=== PATIENT | male | born 1940 | race Caucasian/White ===

== ENCOUNTER → 2020-08-11 09:11 | Outpatient (BNVA) | payer OTHER, SELFPAY | PROVIDERS: PCP Internal Medicine; Visit Provider Surgery | DX: K44.0 Diaphragmatic hernia with obstruction, without gangrene (principal); K21.9 Gastro-esophageal reflux disease without esophagitis; K31.7 Polyp of stomach and duodenum; Z88.0 Allergy status to penicillin; Z88.8 Allergy status to other drugs, medicaments and biological substances; Z79.899 Other long term (current) drug therapy | CPT/HCPCS: 99214 ==

== ENCOUNTER 2020-08-24 17:15 | Outpatient (REF) | payer OTHER, SELFPAY ==
--- NOTE | 2020-08-24 17:19 | CT_ITS ---
EXAMINATION: CT CHEST WITHOUT CONTRAST CLINICAL INFORMATION: Diaphragmatic hernia with obstruction. COMPARISON: CT chest without contrast 05/28/2018 TECHNIQUE: Multidetector volumetric CT imaging of the chest was done. Axial MIP volume rendering provided. Sagittal and coronal reformatted images were obtained. This CT examination was performed using dose optimization techniques as appropriate, variously including the following: *Automated exposure control *Adjustment of mA and/or kV according to patient size (this includes techniques or standardized protocols for targeted exams where dose is matched to indication/reason for exam; i.e. extremities or head) *Use of iterative reconstruction technique DLP: 258 mGy-cm FINDINGS: REAL ESTATE DEVELOPMENT MANAGER: Unremarkable. LUNGS: There is a 5 mm nodule, right lung apex, image 57/5. There is a 1 mm noncalcified nodule, left upper lobe, axial image 93/5. There is a 3 mm nodule, right upper lobe subpleural based, image 131/5 There is a 2 mm nodule, right middle lobe, axial image 279/5. There is a 2 mm fissural-based nodule, right midlung, image 39/4. There is a 3 mm nodule, image 36/4, are likely fissural nodules, previously measured 4 mm and 5 mm. There are no new nodules seen. No acute pulmonary process seen. MEDIASTINUM: The thyroid lobes are symmetrical and normal. The central trachea and the bronchi are widely patent. Heart size and the great vessels are normal caliber. There is no pericardial effusion. There are coronary artery calcifications present. Central trachea and the bronchi are widely patent. There is a small 9 mm subcarinal nodule. A small hiatal hernia is noted. PLEURA: Focal pleural thickening along the right lateral chest wall and adjacent major fissure is stable. AXILLA: There are small shotty axillary lymph nodes seen bilaterally. UPPER ABDOMEN: Visualized liver, spleen, pancreas and bilateral adrenal glands are unremarkable. There are bilateral renal cysts. No radiopaque gallstones or wall thickening. OSSEOUS STRUCTURES: No lytic or sclerotic process. CT/CT chest wo con IMPRESSION: 1. Stable bilateral pulmonary nodules. No new nodules seen. Small to moderate-sized hiatal hernia, stable. 2. Focal right lateral pleural thickening extending adjacent to the major fissure is stable.
== END 2020-08-24 17:16 ==
LOC: HO.CT 17:15
PROVIDERS: Visit Provider Surgery
DX: K44.0 Diaphragmatic hernia with obstruction, without gangrene (principal); K21.9 Gastro-esophageal reflux disease without esophagitis; K31.7 Polyp of stomach and duodenum
CPT/HCPCS: 71250

== ENCOUNTER → 2020-09-08 09:30 | Outpatient (BNVA) | payer OTHER, SELFPAY | PROVIDERS: PCP Internal Medicine; Visit Provider Surgery | DX: K44.0 Diaphragmatic hernia with obstruction, without gangrene (principal); K21.9 Gastro-esophageal reflux disease without esophagitis | CPT/HCPCS: 99214 ==

== ENCOUNTER 2021-01-08 10:38 | Outpatient (REF) | payer OTHER, SELFPAY | END 2021-01-08 10:39 | disposition home or self-care (01) | LOC: HO.LAB 10:38 | PROVIDERS: PCP Internal Medicine; Visit Provider Internal Medicine Gastroenterology | DX: K52.9 Noninfective gastroenteritis and colitis, unspecified (principal); K31.7 Polyp of stomach and duodenum; Z01.82 Encounter for allergy testing | CPT/HCPCS: 36415; 86003; 99212 ==

== ENCOUNTER → 2021-01-30 11:04 | Outpatient (BNVA) | payer OTHER, SELFPAY | PROVIDERS: PCP Internal Medicine; Visit Provider Internal Medicine Gastroenterology | DX: Z13.89 Encounter for screening for other disorder (principal) ==

== ENCOUNTER → 2021-05-14 09:23 | Outpatient (BNVA) | payer OTHER, SELFPAY | PROVIDERS: PCP Internal Medicine; Visit Provider Internal Medicine Gastroenterology ==

== ENCOUNTER → 2022-05-13 10:19 | Outpatient (REF) | payer OTHER, SELFPAY ==
[2022-05-13 11:32] LABS: MANUAL DIFF FLAG NO
--- NOTE | 2022-05-13 11:32 | ECG_ITS ---
Test Reason : R55 Blood Pressure : / mmHG Vent. Rate : 044 BPM Atrial Rate : 044 BPM P-R Int : 182 ms QRS Dur : 144 ms QT Int : 474 ms P-R-T Axes : 078 -42 014 degrees QTc Int : 405 ms Marked sinus bradycardia Left axis deviation Right bundle branch block Abnormal ECG When compared with ECG of 20-JUN-2018 13:28, No significant changes seen Referred By: Estefania Ramirez Electronically Signed By:JEFFYR FLOOD
[2022-05-13 11:55] LABS: Basophils Percent Auto 0.6 % (0-2); Eosinophils Absolute Auto 0.2 X10*3/uL (0.0-0.4); Eosinophils Percent Auto 3.6 % (0-4); Hematocrit 38.2 % (42.0-52.0); Hemoglobin 12.1 g/dl (14.0-18.0); Imm Gran Abs Auto 0.01 X10*3/uL (0.00-0.03); Imm Gran Pct Auto 0.2 % (0.0-0.4); Lymphocytes Absolute Auto 1.6 X10*3/uL (1.2-4.9); Lymphocytes Percent Auto 31.2 % (20-40); Mean Corpuscular HGB Conc 31.7 g/dl (31.0-36.0); Mean Corpuscular Hemoglobin 28.1 pg (27.0-33.0); Mean Corpuscular Volume 88.8 fL (80.0-98.0); Mean Platelet Volume 8.6 fL (9.4-12.4); Monocytes Absolute Auto 0.5 X10*3/uL (0.1-1.2); Monocytes Percent Auto 10.1 % (2-11); Neutrophils Absolute Auto 2.9 x10*3/uL (2.0-8.3); Neutrophils Percent Auto 54.3 % (45-73); Platelet Count 270 X10*3/uL (160-400); Red Cell Distribution Width 13.5 % (11.0-16.0); White Blood Count 5.3 X10*3/uL (4.8-10.8)
[2022-05-13 12:30] LABS: Alanine Aminotransferase 14 U/L (0-40); Albumin Level 4.1 g/dL (3.5-5.0); Alkaline Phosphatase 85 U/L (39-117); Anion Gap 10 (12-20); Aspartate Amino Transferase 14 U/L (5-37); Bilirubin Total < 0.2 mg/dL (0.0-1.0); Blood Urea Nitrogen 19 mg/dL (9-16); Calcium 9.2 mg/dL (8.4-10.2); Carbon Dioxide 29 mmol/L (22-29); Chloride 104 mmol/L (96-108); Estimated Glomerular Filt Rate 56; Glucose Random 104 mg/dL (60-115); Potassium 4.6 mmol/L (3.3-5.1); Sodium 138 mmol/L (135-145); Total Protein 7.1 g/dL (6.5-8.0)
[2022-05-13 12:51] LABS: TSH reflex Free T4 1.68 uIU/mL (0.32-4.0)
[2022-05-13 13:06] LABS: Folate 6.2 ng/mL (> or = 4.0); Vitamin B12 200 pg/mL (200-900)
[2022-05-14 13:51] LABS: Transglutaminase Ab IgG <1.0 U/mL; Transglutaminase IgA <1.0 U/mL
== END ==
LOC: HO.CARD 10:19
PROVIDERS: PCP Internal Medicine; Visit Provider Internal Medicine Gastroenterology
DX: R10.33 Periumbilical pain (principal); K52.9 Noninfective gastroenteritis and colitis, unspecified; K75.81 Nonalcoholic steatohepatitis (NASH); K31.7 Polyp of stomach and duodenum; G89.29 Other chronic pain; R55 Syncope and collapse; R63.4 Abnormal weight loss
CPT/HCPCS: 36415; 80053; 82607; 82746; 84443; 85025; 86364; 93005; 99212

== ENCOUNTER 2022-05-22 13:27 | Outpatient (REF) | payer OTHER, SELFPAY ==
--- NOTE | ~2022-05-22 | CT_ITS ---
EXAMINATION: CT ABDOMEN AND PELVIS WITH CONTRAST CLINICAL INFORMATION: COMPARISON: None TECHNIQUE: Multidetector volumetric images were obtained from the superior aspect of the liver through the pubic symphysis following administration 85 mL of Omnipaque 350 intravenous contrast. Sagittal and coronal reformatted images were obtained on the technologist's workstation. Oral contrast: Yes This CT examination was performed using dose optimization techniques as appropriate, variously including the following: *Automated exposure control *Adjustment of mA and/or kV according to patient size (this includes techniques or standardized protocols for targeted exams where dose is matched to indication/reason for exam; i.e. extremities or head) *Use of iterative reconstruction technique DLP: 319 mGy-cm FINDINGS: LUNG BASES: The visualized lung bases are unremarkable. LIVER, GALLBLADDER, AND BILIARY TREE: The liver is normal in size, shape, and attenuation. There is a 5 mm low-attenuation lesion in the posterior segment of the right lobe liver axial image 28 series 3. This is too small to definitively characterize. The gallbladder is unremarkable with no evidence of radiopaque gallstones, gallbladder wall thickening, or obvious pericholecystic inflammatory changes. There is mild left-sided intrahepatic biliary duct dilatation. There is extrahepatic biliary duct dilatation. Common bile duct measures 11 mm. No common bile duct stone is appreciated by CT. PANCREAS: There is fatty infiltration of the head of the pancreas. There is question of mild dilatation of the main pancreatic duct in the head of the pancreas measuring 5 mm coronal reconstructed image 41 The pancreas is otherwise unremarkable. SPLEEN: Unremarkable. ADRENAL GLANDS: Unremarkable. KIDNEYS AND URETERS: There is a 8 mm lesion exophytic to the lower pole the left kidney. Hounsfield units following contrast measure 80 not compatible with a cyst axial image 42 series 3. There are multiple bilateral renal cysts. There is a 4 cm cyst in the upper pole of the left kidney with small focus of calcification. The remainder of the renal cysts represent simple cysts. BLADDER: Unremarkable. GASTROINTESTINAL TRACT: There is diverticulosis of the colon. The small and large bowel are otherwise unremarkable. The appendix is not seen. There is an esophageal hernia. This is decreased in size from 2018 exam. ABDOMINAL WALL: There is a small right inguinal hernia. LYMPH NODES: Normal. VASCULAR: There is evidence of atherosclerotic disease. No aneurysm. PELVIC VISCERA: Unremarkable. OSSEOUS STRUCTURES: There are degenerative changes of the spine. CT/CT abdomen pelvis w con IMPRESSION: Dilated left-sided intrahepatic and dilated common bile duct and question mild dilatation of the main pancreatic duct in the head of the pancreas. Follow-up MR of the pancreas with MRCP recommended. 8 mm lesion exophytic to the lower pole of the left kidney not compatible with a simple cyst. 5 mm low-attenuation lesion in the right lobe of the liver difficult to characterize due to small size. These could be evaluated at time of pancreas MRI as well. Bilateral renal cysts. Diverticulosis of the colon. Esophageal hernia decreased in size from 2018 exam.. Atherosclerotic disease. No significant abnormality. Fleischner guidelines were followed.
[2022-05-22] MEDS: iohexoL 350 MG/ML 100 ML INFUS..BTL IV (15:49)
[2022-05-22] MEDS: Barium Sulfate Oral (Vanilla) 450 ML ORAL.SUSP 900 ML PO (15:50)
== END 2022-05-22 13:28 | disposition home or self-care (01) ==
LOC: HO.CT 13:27
PROVIDERS: PCP Internal Medicine; Visit Provider Internal Medicine Gastroenterology
DX: K31.7 Polyp of stomach and duodenum (principal); K52.9 Noninfective gastroenteritis and colitis, unspecified; R63.4 Abnormal weight loss; R55 Syncope and collapse
CPT/HCPCS: 74177; Q9967

== ENCOUNTER 2022-06-07 09:30 | Outpatient (REF) | payer OTHER, SELFPAY ==
--- NOTE | ~2022-06-07 | MR_ITS ---
EXAMINATION: MR ABDOMEN WITHOUT AND WITH CONTRAST CLINICAL INFORMATION: Other specified disease of biliary tract. Right upper quadrant pain, discomfort and nausea. COMPARISON: Previous CT 05/22/2022 TECHNIQUE: MR abdomen was performed without and with use of 10 mL intravenous Gadavist gadolinium contrast. Postcontrast images are performed in multiphase dynamic sequences. Imaging was performed in 3 planes. MRCP sequences were performed. FINDINGS: LUNG BASES: The visualized lung bases are unremarkable. LIVER, GALLBLADDER, AND BILIARY TREE: There is signal loss in the liver on [id number] sequences suggestive of mild fatty infiltration. No focal liver lesion is seen. There is no intrahepatic biliary duct dilatation. The common bile duct is dilated measuring up to 1 cm. No common bile duct stone is seen. The gallbladder is normal in size. No gallstones are seen. The gallbladder wall is normal in thickness. There is no pericholecystic fluid. PANCREAS: There is mild dilatation of the main pancreatic duct in the head of the pancreas measuring 4 mm. The pancreas is otherwise normal. SPLEEN: Normal. ADRENAL GLANDS: Normal. KIDNEYS AND URETERS: There are multiple bilateral renal cysts. Largest right renal cyst measures 6.0 cm. Largest left renal cyst measures 5.0 cm. The questioned 1 cm lesion exophytic to the lower pole of the left kidney is not included in the [id number] on all sequences, particularly the post contrast sequences, and is not evaluated. GASTROINTESTINAL TRACT: Diverticulosis. Esophageal hernia. No bowel obstruction. No ascites or fluid collection. ABDOMINAL WALL: No significant hernia is appreciated. LYMPH NODES: No lymphadenopathy. VASCULAR: There is evidence of atherosclerotic disease. No aneurysm. OSSEOUS STRUCTURES: There is curvature of the lumbar spine to the right and degenerative change. MR/MR abdomen wo/w con IMPRESSION: 1. Dilated common bile duct down to the head of the pancreas. No mass or stone seen. Normal-appearing gallbladder. No gallstone seen. Mild dilatation of the main pancreatic duct in the head of the pancreas measuring 4 mm. The pancreas is otherwise normal. 2. Multiple bilateral renal cysts. Questioned 1.0 cm lesion exophytic to the lower pole the left kidney is not included in the [id number] on all sequences and not adequately assessed. Esophageal hernia. Diverticulosis.
== END 2022-06-07 09:31 | disposition home or self-care (01) ==
LOC: HO.MRI 09:30
PROVIDERS: Visit Provider Internal Medicine Gastroenterology
DX: K83.8 Other specified diseases of biliary tract (principal)
CPT/HCPCS: 74183; A9585

== ENCOUNTER → 2022-07-03 12:36 | Day surgery (SDC) | payer OTHER, SELFPAY ==
[2022-07-03] VITALS (7 sets, daily range): BP systolic 143–173; BP diastolic 63–86; PULSE 44–78; RESP 14–16; TEMP 36.2–36.7; O2SAT 97–98; BMI 22.2
--- NOTE | ~2022-07-03 | FL_ITS ---
EXAMINATION: XR FLUOROSCOPY WITH IMAGES CLINICAL INFORMATION: Biliary ductal dilatation. COMPARISON: CT abdomen and pelvis with contrast 05/22/2022, MR abdomen 06/07/2022. TECHNIQUE: Fluoroscopy performed by Dr. Estefania Ramirez. Fluoroscopy time: 20 seconds. Cumulative Dose: 5.44 mGy. Images: 5. FINDINGS: Fluoroscopic spot views show distal end of endoscopy tube with guidewire in region of the lower common duct. FL/FL guidance in OR IMPRESSION: Fluoroscopy for GI procedure.
--- NOTE | 2022-07-03 13:01 | MHC.SHP ---
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) History of Previous Operations: Relevant previous surgery/procedure and date(s) (hiatal henria repair) Allergies: Allergies Allergy/AdvReac Type Severity Reaction Status Date / Time wheat Allergy Mild dizziness, Verified 05/13/22 10:31 diarrhea aspartame [ASPARTAME] Allergy Unknown NAUSEA & Verified 05/13/22 10:31 VOMITING codeine [CODEINE] Allergy Unknown HIVES Verified 05/13/22 10:31 lactose [LACTOSE] Allergy Unknown DIARRHEA Verified 05/13/22 10:31 Penicillins [PENICILLINS] Allergy Unknown HIVES Verified 05/13/22 10:31 saccharin [SACCHARIN] Allergy Unknown NAUSEA & Verified 05/13/22 10:31 VOMITING simvastatin [SIMVASTATIN] Allergy Unknown UNKNOWN Verified 05/13/22 10:31 artificial sweeteners Allergy Unknown unknown Uncoded 05/13/22 10:31 penicillin Allergy Unknown unknown Uncoded 05/13/22 10:31 Saccharin Allergy Unknown Unknown Uncoded 05/13/22 10:31 ARTIFICIAL SWEETENERS AdvReac Unknown VOMITING Uncoded 05/13/22 10:31 Review of Systems Sugical H&P ROS: Negative: Constitution, Cardiovascular, Respiratory, Neurological, Psychiatric, Hem-Onc, Allergic/Immunologic, Gastrointestinal, Genitourinary, Musculoskeletal, Integumentary, Endocrine and Eyes/Ears/Nose/Throat Exam Surgical H&P Exam: Normal: HEENT, Normal: Heart, Normal: Lungs, Normal: Extremities, Normal: Skin and Normal: Neurological and Significant Findings: Abdomen (tender epigastrium) Plan Diagnosis/Plan: Unchanged I have reviewed the history and physical and performed a pertinent physical examination on my patient. No changes have occurred unless specified. ERCP as above to investigate abn imaging and weight loss, with EGD.
--- NOTE | 2022-07-03 13:05 | P.CONAN_ITS ---
HPI - Anesthesia Eval Consult details Narrative: 82 yo male patient for ERCP with spyglass PMFSH Active Problems Active Problems: All Active Problems (Updated 06/17/22 @ 16:53 by Estefania Ramirez MD) Renal cyst (Acute) Dilated cbd, acquired (Acute) Weight loss (Acute) Vasovagal episode (Acute)- patient does not remember Postprandial diarrhea (Acute) Gastric polyps (Acute) GERD (gastroesophageal reflux disease) (Acute). 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 Denies chest pain or SOB. Gets dizzy if stands up suddenly. 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 Family History Family history of problems with anesthesia: No Surgical History Surgical History (Updated 07/03/22 @ 13:14 by Nesha Lan MD) H/O colonoscopy History of esophagogastroduodenoscopy (EGD) History of repair of hiatal hernia History of Problems with Anesthesia: No Social History Social History Household Members: None Alcohol intake: current Alcohol intake frequency: holidays/special occasions only Advance Directives: No Advance Directives Information Provided: Yes Meds Allergies Allergy/AdvReac Type Severity Reaction Status Date / Time wheat Allergy Mild dizziness, Verified 05/13/22 10:31 diarrhea aspartame [ASPARTAME] Allergy Unknown NAUSEA & Verified 05/13/22 10:31 VOMITING codeine [CODEINE] Allergy Unknown HIVES Verified 05/13/22 10:31 lactose [LACTOSE] Allergy Unknown DIARRHEA Verified 05/13/22 10:31 Penicillins [PENICILLINS] Allergy Unknown HIVES Verified 05/13/22 10:31 saccharin [SACCHARIN] Allergy Unknown NAUSEA & Verified 05/13/22 10:31 VOMITING simvastatin [SIMVASTATIN] Allergy Unknown UNKNOWN Verified 05/13/22 10:31 artificial sweeteners Allergy Unknown unknown Uncoded 05/13/22 10:31 penicillin Allergy Unknown unknown Uncoded 05/13/22 10:31 Saccharin Allergy Unknown Unknown Uncoded 05/13/22 10:31 ARTIFICIAL SWEETENERS AdvReac Unknown VOMITING Uncoded 05/13/22 10:31 Home Medications Medication Instructions Recorded Confirmed Last Taken Type carisoprodol 350 mg tablet 350 mg PO QID 08/11/20 09/08/20 Unknown History gabapentin 300 mg capsule 300 mg PO BID 08/11/20 09/08/20 Unknown History oxycodone 5 mg tablet 5 mg PO Q4H PRN 08/11/20 09/08/20 Unknown History Exam Exam Date and Time: July 03, 2022 1305 Height,Weight and Vital Signs: Height 5 ft 10 in Weight 70.307 kg Vital Signs Temp Pulse Resp BP Pulse Ox O2 Del Method 07/03/22 13:05 98.1 F 44 L 16 167/63 H 97 Room Air Airway Mallampati Class: II TM Dist: >3cm Neck ROM: Full Denture: Upper Loose/Missing/Broken Teeth: Yes (No teeth bottom ) Heart: RRR Lungs: CTAB Assessment and Plan Assessment Anesthesia Assessment: Anesthesia Plan Discussed and Chart Reviewed Final Anesthetic Review Family History of Problems with Anesthesia: No History of Problems with Anesthesia: No NPO: Yes ASA Class: II Final Preanesthetic Review: No Changes in Pt Med Stat, Meds/Allgs Chart Reviewed, Consent Obtained/Reviewed and Anes Risks/Benef Reviewed Patient Risk: Low Procedure Risk: Intermediate Assessment/Block/Sedation in SS: Assess/Block/Sedation-SS Anesthetic Plan Anesthetic Plan: GA Disposition: Standard PACU
[2022-07-03] MEDS: Lactated Ringers 1,000 ML 100 ML IVCONT (13:37)
--- NOTE | 2022-07-03 15:14 | W.PM.OPN ---
Operative Note Operative Note Date of Service: 07/03/22 Narrative: Description: Endoscopic retrograde cholangiopancreatography (ERCP) and EGD PROCEDURE: Endoscopic retrograde cholangiopancreatography and EGD INDICATION FOR THE PROCEDURE: Patient with a history of chronic abdominal pain and imaging with dilated CBD and PD, concern for neoplasia MEDICATIONS: General anesthesia, rectal indomethacin 100 mg, cefotetan 1 g IV The risks of the procedure were made aware to the patient and consisted of medication reaction, bleeding, perforation, aspiration, and post ERCP pancreatitis. DESCRIPTION OF PROCEDURE: After informed consent and appropriate sedation, the duodenoscope was inserted into the oropharynx, down the esophagus, and into the stomach. The scope was then advanced through the pylorus to the ampulla. There was a lot of food debris in the stomach with erythema noted. No mass could be seen. There appeared to be extrinsic compression of the stomach. The ampulla had a markedly abnormal appearance. It was edematous and swollen with camron ampullary edema. No orifice could be identified, The tome was used with the wire to gently probe the ampulla but the wire could not be placed in either the CBD or PD. An upper endoscope was used to investigate further, it confirmed the findings above, no masses seen. Biopsies were taken from around the stomach and the periampullary area. The procedure was then terminated and the ERCP scope withdrawn. FINDINGS: 1. gastric outlet obstruction 2. possible invasive ampullary lesion or stenosed ampulla RECOMMENDATIONS: 1. small meals, low fat diet, low fiber 2. refer for EUS and ERCP to tertiary center. 3. meantime repeat MRI pancreas.
== END | disposition home or self-care (01) ==
PROVIDERS: PCP Internal Medicine; Visit Provider Internal Medicine Gastroenterology
PROC: (CPT 43260; principal; 2022-07-03 13:40)
DX: R93.3 Abnormal findings on diagnostic imaging of other parts of digestive tract (principal); Z85.038 Personal history of other malignant neoplasm of large intestine; R63.4 Abnormal weight loss; Z68.23 Body mass index [BMI] 23.0-23.9, adult; R55 Syncope and collapse; K83.1 Obstruction of bile duct; K31.7 Polyp of stomach and duodenum; K21.9 Gastro-esophageal reflux disease without esophagitis; R10.9 Unspecified abdominal pain; G89.29 Other chronic pain; K44.9 Diaphragmatic hernia without obstruction or gangrene; Z79.899 Other long term (current) drug therapy; Z88.0 Allergy status to penicillin; Z88.8 Allergy status to other drugs, medicaments and biological substances; Z87.891 Personal history of nicotine dependence; Z98.890 Other specified postprocedural states; K75.81 Nonalcoholic steatohepatitis (NASH)
CPT/HCPCS: 43260; 43239; 88305; 88342; C1769; J0690; J1610; J2370; J2405; J3010; Q9967; Q9968

== ENCOUNTER 2022-07-12 10:19 | Outpatient (REF) | payer OTHER, SELFPAY ==
--- NOTE | ~2022-07-12 | US_ITS ---
EXAMINATION: US RETROPERITONEAL LIMITED (RENAL ONLY) CLINICAL INFORMATION: Renal cysts. COMPARISON: Previous MRI [address] of the abdomen and pelvis May 2022 TECHNIQUE: Grayscale and color imaging of the kidneys. Comparison with CT and MRI is difficult. FINDINGS: RIGHT KIDNEY: 11.7 x 5.6 x 4.6 cm (SAG x AP x TRV). The kidney is normal in size, contour, and echogenicity. Renal cortical thickness is normal. There are multiple renal cysts. There is a 3.4 x 3 x 3 cm complex cyst in the lower pole with layering hypoechoic dependent material. The remainder of the cysts represent simple cysts. Largest simple cyst measures 6.4 x 5.2 x 4.8 cm. No calculi or mass. No hydronephrosis. LEFT KIDNEY: 10.8 x 5.3 x 4.9 cm (SAG x AP x TRV). The kidney is normal in size, contour, and echogenicity. Renal cortical thickness is normal. There are multiple cysts. The largest cyst measures 4 x 3.5 x 3.6 cm in the upper pole and has a small focus of wall calcification. The remainder of the left renal cysts represent simple cysts. No calculi or mass. No hydronephrosis. US/US renal BI IMPRESSION: Multiple bilateral renal cysts. There is one complex cyst seen in each kidney. The remainder of the cysts represent simple cysts.
== END 2022-07-12 10:20 | disposition home or self-care (01) ==
LOC: HO.US 10:19
PROVIDERS: Visit Provider Internal Medicine Gastroenterology
DX: N28.1 Cyst of kidney, acquired (principal)
CPT/HCPCS: 76775

== ENCOUNTER 2023-04-29 10:32 | Outpatient (REF) | payer OTHER, SELFPAY ==
--- NOTE | ~2023-04-29 | CT_ITS ---
EXAMINATION: CT CHEST WITHOUT CONTRAST CLINICAL INFORMATION: Diaphragmatic hernia with obstruction and without gangrene COMPARISON: Previous chest CT August 2020 TECHNIQUE: Multidetector volumetric CT imaging of the chest was done. Axial MIP volume rendering provided. Sagittal and coronal reformatted images were obtained. This CT examination was performed using dose optimization techniques as appropriate, variously including the following: *Automated exposure control *Adjustment of mA and/or kV according to patient size (this includes techniques or standardized protocols for targeted exams where dose is matched to indication/reason for exam; i.e. extremities or head) *Use of iterative reconstruction technique DLP: 172 mGy-cm FINDINGS: LUNGS: Emphysema. Stable small pulmonary nodules. Areas of mild bronchial wall thickening and increased peribronchial attenuation greatest in the right upper and right lower lobes suggestive of mild airways disease. No endobronchial or endotracheal lesion. MEDIASTINUM: The mid thoracic esophagus is slightly distended and filled with fluid. There is a hiatal hernia. This appears slightly increased in size from previous exam. Normal heart size. No enlarged hilar or mediastinal lymph nodes. Calcified but normal caliber thoracic aorta. CORONARY ARTERY CALCIFICATION: Mild PLEURA: Focal right pleural thickening along the major fissure unchanged. No pleural effusion. AXILLA: No lymphadenopathy. UPPER ABDOMEN: Bilateral renal cysts. No imaging follow-up recommended. OSSEOUS STRUCTURES: Degenerative changes of the spine. CT/CT chest wo IV con IMPRESSION: Hiatal hernia increased from 2019 exam. Emphysema. Stable small pulmonary nodules. Probable mild airways disease greatest in the right upper and right lower lobes. Fleischner guidelines were followed.
== END 2023-04-29 10:33 | disposition home or self-care (01) ==
LOC: HO.CT 10:32
PROVIDERS: PCP Internal Medicine; Visit Provider Surgery
DX: K44.0 Diaphragmatic hernia with obstruction, without gangrene (principal)
CPT/HCPCS: 71250

== ENCOUNTER 2023-05-16 09:40 | Outpatient (REF) | payer OTHER, SELFPAY ==
--- NOTE | ~2023-05-16 | FL_ITS ---
PROCEDURE: FL BARIUM SWALLOW CLINICAL INFORMATION: Diaphragmatic hernia with obstruction without gangrene. COMPARISON: CT scan of 04/29/2023. TECHNIQUE: Barium swallow examination is performed using fluoroscopic evaluation in addition to multiple fluoroscopic spot views. The patient is imaged both upright and prone and using both thick and thin sulfate along with effervescent granules. Fluoroscopy time: 1.4 minutes DAP: 2.212 Gy-cm2 Images: 26 FINDINGS: There is normal apposition of the vocal cords when saying E. There is normal elevation of the soft palate while saying candy. Patient swallowed thin and thick barium and half-inch diameter barium tablet without difficulty. No nasopharyngeal reflux or tracheal aspiration. No significant cricopharyngeal hypertrophy or Zenker's diverticulum identified. There is noted to be a moderate-sized hiatal hernia present with free reflux of contrast to the level of the thoracic inlet spontaneously. No esophageal ulceration or persistent stricture is identified. FL/FL barium swallow IMPRESSION: Moderate-sized hiatal hernia with free gastroesophageal reflux to the level of the thoracic inlet.
== END 2023-05-16 09:41 | disposition home or self-care (01) ==
LOC: HO.XRAY 09:40
PROVIDERS: PCP Internal Medicine; Visit Provider Surgery
DX: K44.0 Diaphragmatic hernia with obstruction, without gangrene (principal)
CPT/HCPCS: 74220

== ENCOUNTER → 2023-05-16 09:42 | Outpatient (BNV) | payer OTHER, SELFPAY | PROVIDERS: PCP Internal Medicine; Visit Provider Radiology Diagnostic Radiology | DX: K44.0 Diaphragmatic hernia with obstruction, without gangrene (principal) | CPT/HCPCS: 74221 ==

== ENCOUNTER 2023-06-27 10:56 | Outpatient (AMB) | payer OTHER, SELFPAY ==
--- NOTE | 2023-06-27 10:58 | MHC.OFFVIS ---
Intake Vital Signs 06/27/23 11:09 Weight 158 lb 11.725 oz BP 120/70 Blood Pressure Location Lt brachial Pulse 75 Pulse Oximetry (%) 96 Intake Visit Reasons: Hiatal Hernia Allergies wheat Allergy (Mild, Verified 06/27/23 11:12) dizziness, diarrhea aspartame [ASPARTAME] Allergy (Unknown, Verified 06/27/23 11:12) NAUSEA & VOMITING codeine [CODEINE] Allergy (Unknown, Verified 06/27/23 11:12) HIVES lactose [LACTOSE] Allergy (Unknown, Verified 06/27/23 11:12) DIARRHEA Penicillins [PENICILLINS] Allergy (Unknown, Verified 06/27/23 11:12) HIVES saccharin [SACCHARIN] Allergy (Unknown, Verified 06/27/23 11:12) NAUSEA & VOMITING simvastatin [SIMVASTATIN] Allergy (Unknown, Verified 06/27/23 11:12) UNKNOWN ARTIFICIAL SWEETENERS Adverse Reaction (Unknown, Uncoded 08/23/22 15:32) VOMITING Medication List - Last Reconciled 06/27/23 by Gaurang Logan MD carisoprodol 350 mg PO QID colesevelam (WelChol) 1,250 mg (2 x 625 mg) PO BID gabapentin 300 mg PO BID mecobalamin (vitamin B12) (B12 Active) 1,000 mcg PO DAILY pantoprazole 40 mg PO BID 30 days sucralfate 10 mL PO BID HPI Hiatal Hernia HPI Details 83-year-old male who has done quite well since his paraesophageal hernia repair for a giant paraesophageal hernia with obstruction and or 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 He does not seem to have any symptoms that are related to IU potential recurrence although difficult to say on endoscopy with the stomach for blown up with air as to have significance this was. I had a long discussion with him about his eating habits and recommended some dietary modifications. He reports today that he does have occasional episodes of epigastric pain most recently a few weeks ago while mowing his lawn. This was not associated with anything he ate be did feel a bulge at his epigastrium at that time. He denies any dysphagia but does report significant reflux. He denies any hematemesis or blood in his stool. He did have a barium study on 05/16/2023 which showed moderate sliding hernia with reflux up to the inlet. On 04/29/[address] scan of the chest which shows again a recurrence which is slightly more than it was few years ago when I reviewed this with him and when he had no symptoms. Other than above, 12 point review of systems was done and negative. 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 Neck: No thyromegaly, supple, no JVD Lymph: No cervical, supraclavicular, or other lymphadenopathy Chest: No chest wall abnormalities or deformities Heart: Regular rate and rhythm Lungs: Clear to auscultation bilaterally Abdomen: Soft, nontender, normal bowel sounds wounds well healed no hernias appreciated Extremities: No edema, cyanosis, or clubbing. 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 I explained all this to him in detail. More specifically the episodes were he has epigastric pain are likely related. Again we did go over some dietary changes and I explained the option of a redo hernia repair which I think at this point given his relatively new symptoms he wants to proceed with. I discussed risks benefits and alternatives of this operation which he understood and agreed to proceed. Plan then will be for a Davinci paraesophageal hernia repair redo in about a month's time and he will need a risk assessment note from his [facility]. all questions were answered he was given some information and we went over this information together. 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
[2023-06-27 11:09] VITALS: BP 120/70; PULSE 75; O2SAT 96
== END 2023-06-27 11:23 | disposition home or self-care (01) ==
PROVIDERS: PCP Internal Medicine; Visit Provider Surgery
DX: K44.0 Diaphragmatic hernia with obstruction, without gangrene (principal)

== ENCOUNTER → 2023-06-27 10:56 | Outpatient (BNVA) | payer OTHER, SELFPAY | PROVIDERS: PCP Internal Medicine; Visit Provider Surgery | DX: K44.0 Diaphragmatic hernia with obstruction, without gangrene (principal) | CPT/HCPCS: 99212 ==

== ENCOUNTER 2025-07-21 09:08 | Outpatient (REF) | payer OTHER, SELFPAY ==
--- NOTE | ~2025-07-21 | MR_ITS ---
EXAMINATION: MR ABDOMEN WITHOUT AND WITH CONTRAST CLINICAL INFORMATION: Kidney cysts. COMPARISON: June 07, 2022. Correlated to CT dated May 22, 2022. TECHNIQUE: MR abdomen was performed without and with use of 7.3 mL intravenous Gadavist gadolinium contrast. Postcontrast images are performed in multiphase dynamic sequences. Imaging was performed in 3 planes. No reported immediate complications. FINDINGS: LUNG BASES: No enhancing mass. LIVER, GALLBLADDER, AND BILIARY TREE: Liver measures 14 cm. There are few scattered less than 5 mm nonenhancing fluid signal characteristic lesions, the most conspicuous in the inferior right hepatic lobe. The flow-void signal within the main portal veins and hepatic veins and intrahepatic portion of the IVC is normal. Mild prominent intrahepatic biliary ductal system. Gallbladder is fluid-filled nondistended. No pericholecystic fluid collection or gallbladder wall thickening. No intraluminal signal abnormality. Common bile duct measures 11 mm. No intraluminal signal abnormality. PANCREAS: No focal mass. No main pancreatic ductal dilatation. No peripancreatic fluid collections. SPLEEN: 10 cm. No focal mass. ADRENAL GLANDS: No nodular lesions. Soft tissue fullness, left adrenal gland. KIDNEYS AND URETERS: Right kidney: No hydronephrosis. Multifocal, different sizes, well-defined, nonenhancing, thin capsulated fluid signal characteristic lesions in an exophytic, cortical medullary junction renal cortex. The largest in the lower pole measures 6 cm. There is a 2.8 cm hypointense T2 1 mm maximum thickness nonenhancing capsule. There is a 1 cm thin septated fluid signal characteristic lesion in the posterior midportion. Normal enhancement pattern of the renal parenchyma. Normal enhancement pattern of the main vessels. No peripancreatic fluid collections or edema pattern. Left kidney: No hydronephrosis. 0.8 cm intrinsic hyperintense T1 exophytic nonenhancing lesion in the anterior midportion. There is a 1.2 cm exophytic intrinsic hyperintense T1 nonenhancing lesion in the lower pole. Multifocal, different sizes, well-defined, thin capsulated nonenhancing fluid signal characteristic lesions, the largest measures 2 cm Normal enhancement pattern of the renal parenchyma. Normal enhancement pattern of the main vessels. No perinephric fluid collections.. GASTROINTESTINAL TRACT: Hiatal hernia, moderate to large volume. Abundant food contents in the stomach. Abundant stool in a nondilated large intestine. No ascites. No intestinal obstruction pattern. ABDOMINAL WALL: No umbilical hernia. LYMPH NODES: No mesenteric or retroperitoneal lymphadenopathy. VASCULAR: No aneurysm or dissection, abdominal aorta. OSSEOUS STRUCTURES: A S-shaped curvature of the thoracolumbar spine with a dextroconvex rotoscoliosis apex at L2-3. Degenerative changes at the endplates of L2-3 and extending into the vertebral bodies mostly on the left side likely secondary to scoliosis. Ligamentum flavum hypertrophy. Broad-based disc bulging, T9-10 and T10 . MR/MR abdomen wo/w con IMPRESSION: Nonenhancing hemorrhagic cyst, left kidney. Bosniak type II renal cyst, bilaterally. Hiatal hernia, moderate to large volume. Subcentimeter hepatic cysts. Scoliosis and multilevel thoracolumbar spondylosis. Electronically signed by: Wilfredo Dunbar MD 07/21/2025 10:39 AM EDT
--- OUTSIDE RECORDS SUMMARY | 2025-07-21 09:55 | XMS_ITS | Clinical Summary ---
Author Organization [facility] Facility Address [address] [address] Care Team Providers Care Automobile Inspector Name Role Phone Edouard Landaverde MD Primary Care Provider [phone] Social History Tobacco Use Types Packs/Day Years Used Date Smoking Tobacco: Never Assessed Sex and Gender Information Value Date Recorded Sex Assigned at Not on file Legal Sex Male 2:18 PM EDT Gender Identity Not on file Sexual Orientation Not on file Plan of Treatment Health Maintenance Due Date Last Done Comments Pneumococcal Vaccine: 50+ Ye ars (1 of 2 - PCV) 1961 Influenza Vaccine (#1) 2025 Hepatitis B Vaccine Aged Out No longe r eligible based on patient's age to complete this topic Insurance [facility] Regions 1,2,3 (VACCN) Care Teams Automobile Inspector Relationship Specialty Start Date End Date Edouard Landaverde MD [address] [place] [address] PCP - General Internal Medicine 01/28/24
--- OUTSIDE RECORDS SUMMARY | 2025-07-21 09:55 | XMS_ITS | Encounter Summary ---
Author Organization [facility] Address [address] [facility] [address] [place] [address] Phone Care Team Providers Care Microsoft Dynamics Ax Consultant Name Role Phone Edouard Landaverde MD Primary Care Provider + Encounter Details Date Type Department Care Team (Late st Contact Info) Description 03/03/2024 Procedure Pass Non-Invasive Cardiology [address] [place] [address] Social History Tobacco Use Types Packs/Day Years Used Date Smoking Tobacco: Former Cigarettes Q uit: 1994 Smokeless Tobacco: Never Alcohol Use Standard Drinks/Week Comments Yes 0 (1 standard drink = 0.6 oz pur e alcohol) rare social Education Answer Date Recorded Are you interested in more education? Not on remi e 02/14/2023 Are you concerned about learning? Not on file 02/14/2023 No 02/14/2023 No 02/14/2023 Digital Access Answer Date Recorded No 03/18/2023 No 03/18/2023 Reliable internet access at home? Not on file 03/18/2023 Device with a working camera? Not on file Intimate Partner Violence Answer Date R ecorded Are you denied basic needs s uch as food, clothing, or medical care? No 01/16/2024 In the past 12 months have y ou been in a relationship with a person who hurts, threatens, or tries to control you? No 01/16/2024 Are you denied basic needs s uch as food, clothing, or medical care? No 01/16/2024 In the past 12 months have y ou been in a relationship with a person who hurts, threatens, or tries to control you? No 01/16/2024 Sex and Gender Information Value Date Recorded Sex Assigned at Male 09/26/2018 3:54 PM EST Legal Sex Male 3:44 PM EST Gender Identity Male 09/26/2018 3:54 PM EST Sexual Orientation Not on file documented as of this encounter Plan of Treatment Upcoming Encounters Date Type Department Care Team (Late st Contact Info) Description 12/27/2025 10:00 AM EDT Office Visit [facility] [address] [facility] 3rd Floor, [address] [place] [address] Kellie Johnson, [address] [address] [email or web address] documented as of this encounter Visit Diagnoses Not on filedocumented in this encounter Care Teams Microsoft Dynamics Ax Consultant Relationship Specialty Start Date End Date Edouard Landaverde MD [address] [place] [id number] PCP - General Internal Medicine 01/16/24 documented as of this encounter Additional Source Comments The information contained in this document represents components of the legal health record. It is not the complete legal health record.[facility]
--- OUTSIDE RECORDS SUMMARY | 2025-07-21 09:55 | XMS_ITS | Encounter Summary ---
Author Organization [facility] Address [address] [place] [address] Phone Care Team Providers Care First Aid Trainer Name Role Phone Edouard Landaverde MD Primary Care Provider + Encounter Details Date Type Department Care Team (Late st Contact Info) Description 01/20/2024 Procedure [facility] [address] [facility] 3rd Floor, [address] [place] [address] Social History Tobacco Use Types Packs/Day Years [...] Description 12/27/2025 10:00 AM EDT Office Visit [facility] [address] [facility] 3rd Floor, [address] [place] [address] Kellie Johnson, [facility] [address] [place] [address] [email or web address] documented as of this encounter Visit Diagnoses Not on filedocumented in this encounter Care Teams First Aid Trainer Relationship Specialty Start Date End Date Edouard Landaverde MD [address] [place] [id number] PCP - General Internal Medicine 01/16/24 documented as of this encounter Additional Source Comments The information contained in this document represents components of the legal health record. It is not the complete legal health record.[facility]
--- OUTSIDE RECORDS SUMMARY | 2025-07-21 09:56 | XMS_ITS | Clinical Summary ---
Author Organization [facility] Address [address] [place] [address] Phone Care Team Providers Care Hearing Screener Name Role Phone Edouard Landaverde MD Primary Care Provider [phone] Allergies Active Allergy Reactions Criticality Noted Date Comments Aspartame 06/11/2021 Codeine 06/11/2021 Other Reaction(s): severe nausea Egg Diarrhea 08/20/2023 Gluten Protein 01/18/2024 intolerance Lactose Diarrhea 08/20/2023 Other 06/11/2021 Artificial sweeteners Penicillins 06/11/2021 Saccharin 06/11/2021 Sildenafil 06/11/2021 Simvastatin 06/11/2021 Other Reaction(s): back aches Medications oxyCODONE (OXY-IR) 5 mg immediate release capsule Take 1 capsule (5 mg total) by mouth every 4 (four) hours. Active oxyCODONE (ROXICODONE) 15 mg immediate release tablet Take 1 tablet (15 mg total) by mouth every 4 (four) hours. Active carisoprodoL (SOMA) 350 mg tablet Take 1 tablet (350 mg total) by mouth 4 (four) times a day. Active colesevelam (WELCHOL) 625 mg tablet Take 2 tablets (1,250 mg total) by mouth 2 (two) times a day with meals. Active gabapentin (NEURONTIN) 300 mg capsule Take 1 capsule (300 mg total) by mouth 2 (two) times a day. 3 Active CYANOCOBALAMIN, VITAMIN B-12, ORAL Take 1,000 mcg by mouth 1 (one) time each day. Active pantoprazole (PROTONIX) 40 mg EC tablet Take 1 tablet (40 mg total) by mouth 2 (two) times a day. Active vardenafiL (LEVITRA) 20 mg tablet Take 1 tablet (20 mg total) by mouth. Active ondansetron ODT (ZOFRAN-ODT) 4 mg disintegrating tablet Take 1 tablet (4 mg total) by mouth. 3 Active Active Problems Problem Noted Date Diagnosed Date Paraesophageal hernia 09/01/2023 Overview (08/02/2024): Last Assessment & Plan: 84-year-old man who had a redo paraesophageal hernia repair on 08/20/2023 that has recurred with a small to moderate paraesophageal hernia now. He does have symptoms of reflux and occasional dysphagia depending on what he eats but thinks he can manage it by keeping his meals small, cutting up his food really well, and avoiding big chunks of bread or meat. I also discussed with him avoiding carbonated beverages and straws as that will fill the stomach with air and potentially make this worse. We also again talked about stopping his routine of morning push-ups and sit ups as this is likely the reason he has recurred twice now. The other option would be to repair this again and I discussed this with him in detail which she seemed understand. Ultimately he wants to try and do the dietary changes and see if he can keep this manageable and will alter his lifestyle choices accordingly as well. Assessment & Plan (09/07/2024 1:32 PM EST): 84-year-old man who had a redo paraesophageal hernia repair on 08/20/2023 that has recurred with a small to moderate paraesophageal hernia now. He does have symptoms of reflux and occasional dysphagia depending on what he eats but thinks he can manage it by keeping his meals small, cutting up his food really well, and avoiding big chunks of bread or meat. I also discussed with him avoiding carbonated beverages and straws as that will fill the stomach with air and potentially make this worse. We also again talked about stopping his routine of morning push-ups and sit ups as this is likely the reason he has recurred twice now. The other option would be to repair this again and I discussed this with him in detail which she seemed understand. Ultimately he wants to continue and do the dietary changes and see if he can keep this manageable and will alter his lifestyle choices accordingly as well. I will plan to see him in 6 months no new imaging necessary. All questions were answered. GERD (gastroesophageal reflux disease) Chronic back pain 06/11/2021 Diverticulosis 06/11/2021 Overview (08/02/2024): CN 02/04/07 Surgical History Surgery Date Site/Laterality Comments OTHER SURGICAL HISTORY 06/2018 PROCEDURE: HISTORY OTHER; COMMENT: paraesophageal hernia repair COLONOSCOPY 02/04/2007 PROCEDURE: HISTORICAL COLONOSCOPY; COMMENT: diverticulosis, polyps OTHER SURGICAL HISTORY 08/20/2023 N/A PROCEDURE: NC LAPS RPR PARAESPHGL HRNA INCL FUNDPLSTY W/MESH Medical History Medical History Date Comments History of colonic polyps 06/11/2021 DX:His tory of colonic polyps; COMMENT: CN 02/04/07 Chronic back pain 06/11/2021 DX:Chronic serjio k pain Diverticulosis 06/11/2021 DX:Diverticulosi s; COMMENT: CN 02/04/07 GERD (gastroesophageal reflux disease) 06/11/2021 DX:GERD (gastroesophageal reflux disease) Social History Tobacco Use Types Packs/Day Years Used Date Smoking Tobacco: Former Cigarettes Q uit: 10/20/1994 Sex and Gender Information Value Date Recorded Sex Assigned at Not on file Legal Sex Male 7:44 AM EST Gender Identity Not on file Sexual Orientation Not on file Obstetrics History Last Filed Vital Signs Vital Sign Reading Time Taken Comments Blood Pressure 152/66 03/07/2025 8:47 AM EDT Pulse 60 03/07/2025 8:47 AM EDT Temperature 36.9 C (98.4 F) 03/07/2025 8:47 AM EDT Respiratory Rate 14 09/06/2024 10:21 AM EST Oxygen Saturation 100% 03/07/2025 8:47 AM EDT Inhaled Oxygen Concentration - - Weight 73.7 kg (162 lb 6.4 oz) 03/07/2025 8:47 A M EDT Height 174 cm (5' 8.5 ) 03/07/2025 8:47 AM EDT Body Mass Index 24.33 03/07/2025 8:47 AM EDT Plan of Treatment Upcoming Encounters Date Type Department Care Team (Late st Contact Info) Description 08/01/2025 9:00 AM EDT Office Visit [facility] [place] [address] [place] [address] Gaurang Logan MD [address] [place] [address] Health Maintenance Due Date Last Done Comments Colorectal Cancer Screening: Colonoscopy 02/05/2012 02/04/2007 Pneumococcal Vaccine: 50+ Years (2 of 2 - PCV20 or PCV21) 03/10/2016 03/10/2015, 01/04/2010, 09/08/1998 RSV Immunization Adult Patients (1 - 1-dose 75+ series) 2017 Cholesterol Screening (Lipid Panel) 09/22/2022 Falls Risk Assessment 09/22/2022 Social Influencers of Health Screening 09/22/2022 Depression Screening 10/20/2024 COVID-19 Vaccine (3 - season) 2025 06/01/2021, 11/28/2020 Influenza Vaccine (#1) 2025 0, 07/23/2019, 08/18/2018, Additional history exists DTaP,Tdap,and Td Vaccines (3 - Td or Tdap) 07/21/2027 07/21/2017, 11/06/2007 Zoster Vaccines Completed 02/15/2019, 01/20, 08/10/2013 HIB Vaccines Aged Out No longer eligi ble based on patient's age to complete this topic HPV Vaccines Aged Out No longer eligi ble based on patient's age to complete this topic Hepatitis A Vaccines Aged Out No long er eligible based on patient's age to complete this topic Hepatitis B Vaccines Aged Out No long er eligible based on patient's age to complete this topic IPV Vaccines Aged Out No longer eligi ble based on patient's age to complete this topic MMR Vaccines Aged Out No longer eligi ble based on patient's age to complete this topic Meningococcal ACWY Vaccine Aged Out N o longer eligible based on patient's age to complete this topic Meningococcal B Vaccine Aged Out No l onger eligible based on patient's age to complete this topic RSV Immunization Patients Under 20 months Aged Out No longer eligible based on patient's age to complete this topic Varicella Vaccines Aged Out No longer eligible based on patient's age to complete this topic Procedures Procedure Name Priority Date/Time Associated Diagnosis Comments COLONOSCOPY Routine 02/04/2007 from Last 3 Months or Most Recently Relevant to Health Maintenance Results * Colonoscopy (02/04/2007) Colonoscopy No Interpretation , Abstracted Anatomical Region Laterality Modality Other Historical Provider HEALTH MAINTENANCE Final Result from Last 3 Months or Most Recently Relevant to Health Maintenance Insurance MEDICARE [facility] Care Teams Hearing Screener Relationship Specialty Start Date End Date Edouard Landaverde MD [address] [place] [address] MARCELINO DELUNA [id number] PCP - General 09/16/23
--- OUTSIDE RECORDS SUMMARY | 2025-07-21 09:56 | XMS_ITS | Encounter Summary ---
Author Organization [facility] Address [address] [facility] [address] [place] [phone] Phone Care Team Providers Care Track Machine Operator Repairer Name Role Phone Edouard Landaverde MD Primary Care Provider + Encounter Details Date Type Department Care Team (Late st Contact Info) Description 02/02/2024 Procedure Pass Non-Invasive Cardiology [address] [place] [address] Social History Tobacco Use Types Packs/Day Years [...] Description 12/27/2025 10:00 AM EDT Office Visit [facility] [address] [facility] 3rd Floor, [address] [place] [address] Kellie Johnson, [address] [address] [email or web address] documented as of this encounter Visit Diagnoses Not on filedocumented in this encounter Care Teams Track Machine Operator Repairer Relationship Specialty Start Date End Date Edouard Landaverde MD [address] [place] [id number] PCP - General Internal Medicine 01/16/24 documented as of this encounter Additional Source Comments The information contained in this document represents components of the legal health record. It is not the complete legal health record.[facility]
--- OUTSIDE RECORDS SUMMARY | 2025-07-21 09:56 | XMS_ITS | Encounter Summary ---
Author Organization [facility] Address [address] [place] [address] [place] [phone] Phone Care Team Providers Care Interlibrary Loan Specialist Name Role Phone Edouard Landaverde MD Primary Care Provider + Edouard Landaverde MD Primary Care Provider + Encounter Details Date Type Department Care Team (Late st Contact Info) Description 02/16/2019 Ancillary Orders Virtual Department [address] [place] [address] Mayra Powell NP [address] [place] [address] [phone] [email or web address] Pain of right calf Social History Tobacco Use Types Packs/Day Years Used Date Smoking Tobacco: Former Cigarettes Q uit: 1994 Smokeless Tobacco: Never Alcohol Use Standard Drinks/Week Comments Yes 0 (1 standard drink = 0.6 oz pur e alcohol) rare social Sex and Gender Information Value Date Recorded Sex Assigned at Male 09/26/2018 3:54 PM EST Legal Sex Male 3:44 PM EST Gender Identity Male 09/26/2018 3:54 PM EST Sexual Orientation Not on file documented as of this encounter Plan of Treatment Upcoming Encounters Date Type Department Care Team (Late st Contact Info) Description 12/27/2025 10:00 AM EDT Office Visit [facility] [address] [place] [address] [address]rd Floor, [address] [place], [place] [id number] Kellie Johnsonricia, [address] [address] [email or web address] documented as of this encounter Results * US Lower Extremity Veins Duplex (Right) (02/17/2019 2:47 PM EDT) Anatomical Region Laterality Modality Hip Right, Thigh Right, Knee Right, Leg Right, Ankle Right, Foot Right Ultrasound 02/17/2019 3:15 PM EDT Impressions 02/17/2019 3:16 PM EDT No evidence of DVT. POS [id number] POS [id number] Narrative 02/17/2019 3:16 PM EDT Comparison:None Combined real-time, color flow and Doppler evaluation of the deep venous system of the right leg shows readily compressible veins with a normal Doppler waveform and easily elicited augmentation from the groin through the trifurcation vessels into the mid calf. No popliteal cyst is apparent. Procedure Note Felix Shahid MD - 02/17/2019 Comparison:None Combined real-time, color flow and Doppler evaluation of the deep venoussystem of the right leg shows readily compressible veins with a normalDoppler waveform and easily elicited augmentation from the groin throughthe trifurcation vessels into the mid calf. No popliteal cyst is apparent. IMPRESSION: No evidence of DVT. POS [id number] POS [email or web address] us Mayra Powell CURER FOAM RUBBER CV US VASCULAR Final Result documented in this encounter Visit Diagnoses Diagnosis Pain of right calf Pain of right calf documented in this encounter Care Teams Interlibrary Loan Specialist Relationship Specialty Start Date End Date Edouard Landaverde MD PCP - General Internal Medicine 09/26/18 01/15/24 Edouard Landaverde MD [address] [place] [phone] PCP - General Internal Medicine 01/16/24 documented as of this encounter Additional Source Comments The information contained in this document represents components of the legal health record. It is not the complete legal health record.[facility]
--- OUTSIDE RECORDS SUMMARY | 2025-07-21 09:56 | XMS_ITS | Encounter Summary ---
Author Organization [facility] Address [address] [facility] [address] [place] [address] Phone Care Team Providers Care Frit Coater Name Role Phone Edouard Landaverde MD Primary Care Provider + Encounter Details Date Type Department Care Team (Late st Contact Info) Description 01/17/2024 Procedure Pass [facility] [address] [place] [address] Social History Tobacco Use Types Packs/Day Years [...] Description 12/27/2025 10:00 AM EDT Office Visit [facility] [address] [facility] 3rd Floor, [address] [place] [address] Kellie Johnson, [address] [address] [email or web address] documented as of this encounter Visit Diagnoses Not on filedocumented in this encounter Care Teams Frit Coater Relationship Specialty Start Date End Date Edouard Landaverde MD [address] [place] [id number] PCP - General Internal Medicine 01/16/24 documented as of this encounter Additional Source Comments The information contained in this document represents components of the legal health record. It is not the complete legal health record.[facility]
--- OUTSIDE RECORDS SUMMARY | 2025-07-21 09:56 | XMS_ITS | Encounter Summary ---
Author Organization [facility] Address [address] [facility] [address] [place] [address] Phone Care Team Providers Care Passenger Screener Name Role Phone Edouard Landaverde MD Primary Care Provider + Edouard Landaverde MD Primary Care Provider + Encounter Details Date Type Department Care Team (Late st Contact Info) Description 11/25/2018 Procedure Pass OR Admitting Dept - Virtual Department [address] [place] [address] Social History Tobacco Use Types Packs/Day Years [...] Description 12/27/2025 10:00 AM EDT Office Visit [facility] [address] [place] [address] 3rd Floor, [address] [place] [address] Kellie Johnson, [facility] [address] [place] [address] [email or web address] documented as of this encounter Visit Diagnoses Not on filedocumented in this encounter Care Teams Passenger Screener Relationship Specialty Start Date End Date Edouard Landaverde MD PCP - General Internal Medicine 09/26/18 01/15/24 Edouard Landaverde MD [address] [place] [id number] PCP - General Internal Medicine 01/16/24 documented as of this encounter Additional Source Comments The information contained in this document represents components of the legal health record. It is not the complete legal health record.[facility]
--- OUTSIDE RECORDS SUMMARY | 2025-07-21 09:56 | XMS_ITS | Encounter Summary ---
Author Organization [facility] Address [address] [facility] [address] [place] [phone] Phone Care Team Providers Care Sales Solutions Associate Name Role Phone Edouard Landaverde MD Primary Care Provider + Encounter Details Date Type Department Care Team (Late st Contact Info) Description 01/19/2024 Procedure Pass [facility] [address] [place] [address] Social History Tobacco Use Types Packs/Day Years [...] Description 12/27/2025 10:00 AM EDT Office Visit [facility] [address] [facility] 3rd Floor, [address] [place] [address] Kellie Johnson, [facility] [place] [address] [place] [address] [email or web address] documented as of this encounter Visit Diagnoses Not on filedocumented in this encounter Care Teams Sales Solutions Associate Relationship Specialty Start Date End Date Edouard Landaverde MD [address] [place] [id number] PCP - General Internal Medicine 01/16/24 documented as of this encounter Additional Source Comments The information contained in this document represents components of the legal health record. It is not the complete legal health record.[facility]
--- OUTSIDE RECORDS SUMMARY | 2025-07-21 09:56 | XMS_ITS | Clinical Summary ---
Author Organization [facility] Address [address] [address] Phone Care Team Providers Care Independent Film Maker Name Role Phone Edouard Landaverde MD Primary Care Provider + Allergies Active Allergy Reactions Criticality Noted Date Comments Artificial Sweetener Nausea and/or Vomiting Medium 09/08/1998 Aspartame Nausea and/or Vomiting 01/19/2024 Codeine 09/26/2018 Gluten Protein 01/18/2024 intolerance Other 01/19/2024 Lactose intolerance Penicillins Hives High 09/26/2018 Medications oxyCODONE 15 MG immediate release tablet Take 15 mg by mouth every 4 (four) hours as needed for pain (specific location in comments). Active carisoprodol (SOMA) 350 MG tablet Take 350 mg by mouth 4 (four) times a day as needed for muscle spasms. Active vardenafil (LEVITRA) 20 MG tabletIndicatio ns:take one tablet by mouth as needed 1 hour prior to sexual activity Take 20 mg by mouth daily as needed for erectile dysfunction. Active oxyCODONE 5 MG immediate release tablet Take 1-2 tablets (5-10 mg total) by mouth every 4 (four) hours as needed for moderate pain. Partial fill ok 15 tablet 11/25/2018 Active docusate sodium (COLACE) 100 MG capsule Take 1 capsule (100 mg total) by mouth 2 (two) times a day. 11/25/2018 Active colesevelam (WELCHOL) 625 mg tablet Take 1,250 mg by mouth 2 (two) times a day with meals. Active pantoprazole (PROTONIX) 40 MG tablet Take 1 tablet by mouth 2 (two) times a day. 04/20/2024 Active tadalafiL (CIALIS) 20 MG tablet Take 20 mg by mouth as needed. 10/22/2024 Active tamsulosin (FLOMAX) 0.4 mg Cap Take 1 capsule by mouth nightly at bedtime. 04/21/2024 Active Active Problems Problem Noted Date Diagnosed Date Dizziness and giddiness 12/27/2024 Assessment & Plan (12/27/2024 3:10 PM EDT): Patient had 1 isolated episode of feeling dizzy. He reports he was not hydrated at all. He reports he hydrated with electrolytes and symptoms improved. He reports he has not had any episodes besides this 1 isolated event. Patient educated on staying very well-hydrated. Primary insomnia 01/18/2024 Assessment & Plan (01/19/2024 6:34 PM EDT): Poor sleep last night. Patient was concerned about pulling his temporary pacer wire. Continue with the patient's usual gabapentin this evening. Otherwise pretty stable. Will turn lights down and try to create an environment where the patient could sleep. Heart block AV complete 01/16/2024 Assessment & Plan (12/27/2024 3:09 PM EDT): Status post permanent pacemaker for complete heart block. Patient is doing well from a cardiovascular standpoint. He is euvolemic on exam today no symptoms concerning for angina. Last remote interrogation back in September 2024. Presenting EGM Ap - Procurement Cost Coordinator. Battery status is OK. Measured values in normal range. Since last transmission, no new episodes. 0% AT/AF [place]. We will continue with remote interrogations every 3 months and in person interrogations every year. Have asked patient to come back for a visit with Maeve for an in person interrogation. Assessment & Plan (02/02/2024 12:55 PM EDT): S/p pacemaker. Device interrogation within normal meds. Pacemaker site has healed up well. Assessment & Plan (01/19/2024 6:33 PM EDT): Status post permanent pacemaker today. Hemodynamically stable. Appears to be pacing at 60. Appreciate cardiology input and following. -- Check chest x-ray --Routine follow-up as per cardiology --Restart diet HERMAN (acute kidney injury) 01/16/2024 Assessment & Plan (02/02/2024 12:55 PM EDT): Had kidney injury in the setting of low perfusion in the hospital in January 2024. Following up with PCP Assessment & Plan (01/19/2024 6:33 PM EDT): Acute kidney injury is likely from hypoperfusion in the setting of third-degree heart block. Creatinine continues to improve. No Borges in place. Renally adjust medications as needed. Avoid any nephrotoxic agents. Chronic back pain 01/16/2024 Assessment & Plan (01/18/2024 2:17 PM EDT): Stable at this time. Will provide as needed pain medications that the patient is chronically on. No indication for IV pain medications or escalation at this time. Simply maintain chronic medication regimen Resolved Problems Problem Noted Date Diagnosed Date Resolved Date Incarcerated right inguinal hernia 10/29/2018 12/11/2018 Assessment & Plan (10/29/2018 1:31 PM EST): The patient has an incarcerated right inguinal hernia. I discussed with him the nature of hernias and options for repair. Plan is for open repair with mesh. I had a conversation with the patient today with regard to hernia surgery. The risks and benefits of hernia surgery including but not limited to the risks of infection, mesh infection, bleeding, chronic pain, recurrence, potential damage to testicle, and scar have been explained to the patient. The patient understands these risks and wishes to proceed. He also understands that this repair is not a cosmetic procedure and that he could be left with a nonaesthetic result, such as a lump, bulge, scar and/or skin changes at the repair site. The patient understands the signs and symptoms of hernia strangulation and will seek immediate medical attention should a pinching feeling or severe pain in the area of the hernia, fever, chills, nausea, and/or vomiting develop. Encounters Date Type Department Care Team Description 05/18/2025 Orders Only [facility] [address] Floor, [address] [place] [address] Provider, MD Marie from Last 3 Months Family History Medical History Relation Comments Prostate cancer Father Relation Status Comments Father Social History Tobacco Use Types Packs/Day Years Used Date Smoking Tobacco: Former Cigarettes Q uit: 1994 Smokeless Tobacco: Never Tobacco Cessation:Counseling Given: Not Answered Alcohol Use Standard Drinks/Week Comments Yes 0 [...] PM EST Sexual Orientation Not on file Last Filed Vital Signs Vital Sign Reading Time Taken Comments Blood Pressure 112/62 12/27/2024 2:07 PM EDT Pulse 80 12/27/2024 2:07 PM EDT Temperature 37.2 C (99 F) 01/20/2024 11:40 AM EDT Respiratory Rate 18 01/20/2024 11:40 AM EDT Oxygen Saturation 98% 12/27/2024 2:07 PM EDT Inhaled Oxygen Concentration - - Weight 71 kg (156 lb 9.6 oz) 12/27/2024 2:07 PM EDT Height 172 cm (5' 7.72 ) 12/27/2024 2:07 PM EDT Body Mass Index 24.01 12/27/2024 2:07 PM EDT Plan of Treatment Upcoming Encounters Date Type Department Care Team (Late st Contact Info) Description 12/27/2025 10:00 AM EDT Office Visit [facility] [address] [place] [address] 3rd Floor, [address] [place] [address] Kellie Johnson, [address] [address] [email or web address] Health Maintenance Due Date Last Done Comments DEPRESSION SCREENING 1954 PNEUMOCOCCAL VACCINES (50+ years) (1 of 1 - PCV) 1992 RSV VACCINE (1 - 1-dose 75+ series) 2017 Adult Td,Tdap Booster 11/06/2017 11/06/2007 INFLUENZA VACCINE (#1) 2025 09/08/1998 COVID-19 VACCINE (2023-2 5 season) 2025 ZOSTER VACCINES Completed 02/15/2019, 02/16/2018, 08/10/2013 HEPATITIS A VACCINES Aged Out No long er eligible based on patient's age to complete this topic HIB VACCINES Aged Out No longer eligi ble based on patient's age to complete this topic MENINGOCOCCAL VACCINES (ACWY) Aged Out No longer eligible based on patient's age to complete this topic MENINGOCOCCAL VACCINES (B) Aged Out N o longer eligible based on patient's age to complete this topic Medical Devices Implanted Type Area Lokie Engineer Device Identifier Shelf Expiration Date Model / Serial / Lot Envelope Tyrx Cardiac Med Absorbable Antibacterial Sterile - [id number] Implanted:Qty: 1 on 01/19/2024 by Josesito Kennedy MD at [facility] Collagen Right: Chest [employer] [facility] [id number] 10/21/2024 [id number] / / [id number] Lead Tendril Sts 6fr 58cm Pacing Optim Insulation Ext/Ret [place] Silicone Tip Is-1 Bipolar Connector - [id number] Implanted:Qty: 1 on 01/19/2024 by Josesito Kennedy MD at [facility] Lead Right: Chest [employer] [id number] 10/19/20268TC/5 8 / [id number] / Lead Tendril Sts 6fr 52cm Pacing Optim Insulation Ext/Ret [place] Silicone Tip Is-1 Bipolar Connector - [id number] Implanted:Qty: 1 on 01/19/2024 by Josesito Kennedy MD at [facility] Lead Right: Chest [employer] [id number] 11/19/20268TC/5 2 / [id number] / Pacemaker Dual Chamber [id number] 20g 10.4cc Is-1 Connector Assurity Mri - [id number] Implanted:Qty: 1 on 01/19/2024 by Josesito Kennedy MD at [facility] Pacemaker Right: Chest [employer] [id number] 04/18/2025 [id number] / [id number] / Mesh Synthetic 10cmx2.54 Abdominal Non Absorbable Rectangle Polypropylene Prolene Bx/6ea - [id number] Implanted:Qty: 1 on 11/25/2018 by Atiya Wells MD at [facility] Right: Cindy GONZÁLES ETHICON / DIVISION OF J 02/16/2023 [id number] / / [id number] Insurance MEDICARE A [facility] MEDICARE A [facility] MEDICARE A [facility]IC[place] [address] [address] MEDICARE A [facility] [address] [place] [address] [place] [address] [address] MEDICARE A [facility] MEDICARE A Member Subscriber Plan / Payer (Ef fective 2007-Present) Name:Harley Lynne Member ID:[id number] Relation to Subscriber:Self Name:Harley Lynne Subscriber ID:[id number] Payer ID:[id number] Group ID:Not on file Type:Medicare Address: [facility] Employee Benefit Solutions [facility] [facility]. [address] [facility] [place] [address] [facility] MEDICARE A Member Subscriber Plan / Payer (Ef fective 2007-Present) Name:Harley Lynne Member ID:[id number] Relation to Subscriber:Self Name:Harley Lynne Subscriber ID:[id number] Payer ID:[id number] Group ID:Not on file Type:Medicare Address: [employer] [facility] [address] [facility] [place] [address] [facility] Advance Directives For more information, please contact: [phone] (9AM - 5PM [facility], Friday-Friday) Documents on File Type Date Recorded Patient Unloader Operator Expl anation Healthcare Proxy 01/21/2024 1:55 PM * Full Code (Latest Code Status on File) Date Activated Date Inactivated Comments 01/19/2024 8:31 PM Question Answer Comments Code Status Confirmed With: Patient * Full Code Date Activated Date Inactivated Comments 01/17/2024 5:19 PM 01/19/2024 8:31 PM Question Answer Comments Code Status Confirmed With: Patient * DNR/DNI (No CPR/No Intubation) Date Activated Date Inactivated Comments 01/17/2024 5:17 PM 01/17/2024 5:19 PM Question Answer Comments Code Status Confirmed With: PatientFamily Code Status Communicated To: Inpatient Attending * Full Code Date Activated Date Inactivated Comments 01/16/2024 10:27 PM 01/17/2024 5:17 PM Question Answer Comments Code Status Confirmed With: Patient * Full Code (Presumed) Date Activated Date Inactivated Comments 11/25/2018 1:28 PM 11/25/2018 7:09 PM Healthcare Agents on File Name Relationship [facility] Agent [facility] Rosalina Blake Daughter Alternate Health care Agent (Proxy form on file) Lawrence Duarte Life Partner .Primary Health Care Agent (Proxy form on file) Care Teams Independent Film Maker Relationship Specialty Start Date End Date Edouard Landaverde MD [address] [place] [id number] PCP - General Internal Medicine 01/16/24 Additional Source Comments The information contained in this document represents components of the legal health record. It is not the complete legal health record.[facility]
== END 2025-07-21 09:09 | disposition home or self-care (01) ==
LOC: HO.MRI 09:08
PROVIDERS: Visit Provider Internal Medicine
DX: N28.1 Cyst of kidney, acquired (principal)
CPT/HCPCS: 74183; A9585

== ENCOUNTER → 2025-07-21 09:27 | Outpatient (BNV) | payer OTHER, SELFPAY | PROVIDERS: Visit Provider Radiology Diagnostic Radiology | DX: N28.1 Cyst of kidney, acquired (principal); K44.9 Diaphragmatic hernia without obstruction or gangrene; K76.89 Other specified diseases of liver; M41.85 Other forms of scoliosis, thoracolumbar region; M47.815 Spondylosis without myelopathy or radiculopathy, thoracolumbar region | CPT/HCPCS: 74183 ==